=== PATIENT | female | born 1985 | race Two or more races ===

== ENCOUNTER 2019-03-12 10:08 | Emergency (ER) | payer OTHER ==
[2019-03-12 10:17] VITALS: BP 101/65; PULSE 75; TEMP 98.9; BMI 31.3
[2019-03-12] MEDS ORDERED: predniSONE 20 MG TABLET (UD) PO ONE (10:37)
[2019-03-12] MEDS ORDERED: ALBUTEROL SO4 2.5/IPRATROPIUM 0.5 INH SOL 3 ML VIAL.NEB. NEB ONE ×3 (10:37→11:38)
--- NOTE | 2019-03-12 10:37 | PDOC ---
History of Present Illness - General Chief Complaint: Cold Symptoms Stated Complaint: COLD SYMPTOMS Time Seen by Provider: 03/12/19 10:27 History Source: Patient Exam Limitations: No Limitations - History of Present Illness Initial Comments: 03/12/19 10:37 Patient is here with persistent cough for the past 4 days. States was seen at an urgent care 2 days ago, rapid flu test is negative and prescribed Bactrim antibiotic and Mucinex but has unable to fill the Mucinex. Patient has continued cough and states has spiked temperatures intermittently. Past History - Travel Traveled outside of the country in the last 30 days: No Close contact w/someone who was outside of country & ill: No - Past Medical History Allergies/Adverse Reactions: Allergies Allergy/AdvReac Type Severity Reaction Status Date / Time No Known Allergies Allergy Verified 03/12/19 10:30 Home Medications: Ambulatory Orders Albuterol 0.083% Nebulizer Sagrario [Ventolin 0.083% Nebulizer Soln -] 1 neb NEB Q4H PRN #30 vial 03/12/19 Sulfamethoxazole/Trimethoprim [Bactrim *Ds*] 1 each PO BID #10 tablet 03/12/19 Sulfamethoxazole/Trimethoprim [Bactrim Ds -] 1 tab PO BID 03/12/19 predniSONE [Deltasone -] 20 mg PO BID #8 tablet 03/12/19 COPD: No - Immunization History Immunization Up to Date: Yes - Suicide/Smoking/Psychosocial Hx Smoking History: Never smoked Hx Alcohol Use: No Drug/Substance Use Hx: No Review of Systems - Review of Systems Able to Perform ROS?: Yes Is the patient limited Vietnamese proficient: Yes Constitutional: Yes: Symptoms Reported, See HPI, Chills, Fever, Malaise HEENTM: Yes: Symptoms Reported, See HPI, Nose Congestion Respiratory: Yes: See HPI, Cough, Wheezing (some tightness ) Cardiac (ROS): No: Symptoms Reported : No: Symptoms Reported Integumentary: Yes: Symptoms Reported Neurological: Yes: Symptoms reported, See HPI, Headache (sinus) All Other Systems: Reviewed and Negative *Physical Exam - Vital Signs Last Vital Signs Temp Pulse Resp BP Pulse Ox 98.9 F 75 17 101/65 100 03/12/19 10:14 03/12/19 10:14 03/12/19 10:14 03/12/19 10:14 03/12/19 10:14 - Physical Exam General Appearance: Yes: Nourished, Appropriately Dressed, Apparent Distress, Mild Distress HEENT: positive: HARLAN, Nasal Congestion, Rhinorrhea. negative: TMs Normal ( conmgestion ) Neck: positive: Tender, Supple, Lymphadenopathy (R), Lymphadenopathy (L) Respiratory/Chest: positive: Lungs Clear, Decreased Breath Sounds, Wheezing ( tight insp exp BS). negative: Normal Breath Sounds Cardiovascular: positive: Regular Rate Gastrointestinal/Abdominal: positive: Soft. 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 States feels better, aerating better. We'll discharge with continuation of Bactrim to treat infection deemed from previous health care provider and continue albuterol and prednisone through the weekend. *DC/Admit/Observation/Transfer Diagnosis at time of Disposition: Bronchitis - Discharge Dispostion Disposition: HOME Condition at time of disposition: Stable Decision to Admit order: No - Referrals - Patient Instructions Printed Discharge Instructions: DI for Viral Upper Respiratory Infection -- Adult Additional Instructions: Rest, drink lots of fluids: Teas, water, soups, Pedialyte Saltwater gargles Steamy showers/seem to face break up mucus Avoid contact with others until fevers and cough resolved Lots of handwashing and good hygiene Continue [id number] medications for symptomatic relief Tylenol or Motrin for fever and pain Continue albuterol nebulizers every 4-6 hours for the next 2 days then as needed for continued cough Prednisone as directed until completed Continue Bactrim until completed Followup with private physician in one to 2 days Return to emergency department / pediatric hospital for worsened symptoms, fevers, dehydration - Post Discharge Activity Forms/Work/School Notes: Back to Work
[2019-03-12] MEDS ORDERED: predniSONE 20 MG TABLET (UD) ONE (10:43)
== END 2019-03-12 12:41 | disposition home or self-care (01) ==
LOC: JERFT 10:08
PROC: 3E0F7GC Introduction of Other Therapeutic Substance into Respiratory Tract, Via Natural or Artificial Opening (ICD-10-PCS; principal; 2019-03-12)
PROC: 3E0F7GC Introduction of Other Therapeutic Substance into Respiratory Tract, Via Natural or Artificial Opening (ICD-10-PCS; 2019-03-12)
DX: J40 Bronchitis, not specified as acute or chronic (principal)
CPT/HCPCS: 94640; 99281-25

== ENCOUNTER 2023-01-08 06:27 | Emergency (ER) | payer SELFPAY ==
[2023-01-08 06:47] VITALS: BP 125/80; PULSE 69; RESP 18; TEMP 97.9; BMI 32.2
== END 2023-01-08 08:45 | disposition home or self-care (01) ==
LOC: JER 06:27
DX: J20.9 Acute bronchitis, unspecified (principal)
CPT/HCPCS: 71046-TC-FY; 93005; 93010; 99284-25